=== PATIENT | female | born 1995 ===

== ENCOUNTER 2017-12-30 09:12 | Emergency (ER) | payer MEDICAID ==
--- NOTE | 2017-12-30 09:46 | C.PDOC ---
History Of Present Illness 22 y/o female with PMHx of UTI presents to ED for complaints of dysuria and hematuria associated with suprapubic pain that began yesterday. In contrary to triage she denies fever or vaginal bleeding. Patient states experiencing similar symptoms last year and was diagnosed with UTI. Time Seen by Provider: 12/30/17 09:30 Chief Complaint (Nursing): Female Genitourinary History Per: Patient History/Exam Limitations: no limitations Onset/Duration Of Symptoms: Days (1) Current Symptoms Are (Timing): Still Present Quality Of Discomfort: Unable To Describe Associated Symptoms: Urinary Symptoms. denies: Fever, Chills, Nausea, Vomiting , Diarrhea Alleviating Factors: None Recent travel outside of the [place]: No Abnormal Vaginal Bleeding: No Past Medical History Reviewed: Historical Data, Nursing Documentation, Vital Signs Vital Signs: Last Vital Signs Temp 97.5 F L 12/30/17 11:51 Pulse 60 12/30/17 11:51 Resp 18 12/30/17 11:51 BP 114/74 12/30/17 11:51 Pulse Ox 100 12/30/17 11:52 - Medical History PMH: No Chronic Diseases Surgical History: No Surg Hx Family History: States: No Known Family Hx - Social History Hx Alcohol Use: No Hx Substance Use: No Review Of Systems Constitutional: Negative for: Fever, Chills Gastrointestinal: Positive for: Abdominal Pain (suprapubic). Negative for: Nausea, Vomiting, Diarrhea Genitourinary: Positive for: Dysuria, Hematuria. Negative for: Vaginal Discharge, Vaginal Bleeding Skin: Negative for: Rash Neurological: Negative for: Weakness, Numbness Physical Exam - Physical Exam Appears: Non-toxic, No Acute Distress Skin: Warm, Dry, No Rash Head: Atraumatic Eye(s): bilateral: Normal Inspection, PERRL, EOMI Oral Mucosa: Moist Neck: Supple Chest: Symmetrical, No Tenderness Cardiovascular: Rhythm Regular, No Murmur Respiratory: Normal Breath Sounds, No Decreased Breath Sounds, No Rales, No Rhonchi, No Wheezing Gastrointestinal/Abdominal: Soft, Tenderness (Suprapubic ) Extremity: Normal ROM Extremity: Bilateral: Atraumatic, Normal Color And Temperature, Normal ROM Pulses: Left Radial: Normal Neurological/Psych: Oriented x3, Normal Speech Gait: Steady ED Course And Treatment O2 Sat by Pulse Oximetry: 100 (RA) Pulse Ox Interpretation: Normal Progress Note: Ordered Urinalysis. Disposition - Disposition Disposition: HOME/ ROUTINE Disposition Time: 11:50 Condition: STABLE Additional Instructions: Follow up with your PMD within 1-2 days. Return to [facility] if feel worse. Prescriptions: Nitrofurantoin Macrocrystals [Macrobid] 1 cap PO BID #14 cap Phenazopyridine [Pyridium] 200 mg PO TID #15 tab Instructions: Urinary Tract Infections in Adults Forms: Work/School/Gym Excuse, [facility] (Danish) - Clinical Impression Clinical Impression: UTI (urinary tract infection) - PA / [employer]TER DIAMOND / Resident Statement MD/DO has reviewed & agrees with the documentation as recorded. - Scribe Statement The provider has reviewed the documentation as recorded by the Bambi Hardy All medical record entries made by the Bambi were at my direction and personally dictated by me. I have reviewed the chart and agree that the record accurately reflects my personal performance of the history, physical exam, medical decision making, and the department course for this patient. I have also personally directed, reviewed, and agree with the discharge instructions and disposition.
[2017-12-30 10:10] LABS: HCG,QUALITATIVE URINE NEGATIVE (NEGATIVE)
[2017-12-30 10:16] LABS: SQUAMOUS EPITHIAL 2 /hpf (0-5); URINE BILIRUBIN NEGATIVE (NEGATIVE); URINE BLOOD 3+ (NEGATIVE); URINE CLARITY Hazy (Clear); URINE COLOR Red (YELLOW); URINE GLUCOSE (UA) NORMAL (Normal); URINE LEUKOCYTE ESTERASE 3+ Leu/uL (Negative); URINE PROTEIN 2+ mg/dL (NEGATIVE); URINE UROBILINOGEN NORMAL mg/dL (0.2-1.0)
[2017-12-30 11:52] VITALS: BP 114/74; PULSE 60; RESP 18; TEMP 97.5; O2SAT 100
== END 2017-12-30 12:06 | disposition home or self-care (01) ==
LOC: C.ER 09:12
DX: N39.0 Urinary tract infection, site not specified (principal)